=== PATIENT | male | born 1935 | race Caucasian/White ===

== ENCOUNTER 2018-11-28 19:37 | Inpatient (IN) ==
[2018-11-28] MEDS ORDERED: ASPIRIN PO ONE (20:04)
[2018-11-28] MEDS ORDERED: DUONEB (A & A) INH ONE (20:19)
[2018-11-28] MEDS ORDERED: SOLU-MEDROL IV ONE (20:19)
--- NOTE | 2018-11-28 20:26 | Diag Imaging Result Doc PS360 ---
EXAM: CHEST-PORTABLE 11/28/2018 HISTORY: SOB TECHNIQUE: AP portable upright at 2016 COMMENT: The inspiration is less optimal than on 09/12/2017. There is apparent COPD. The possibility of right lower lobe pneumonia cannot be excluded. IMPRESSION: Right lower lobe pneumonia. Electronically signed by Rakan Michel 11/28/2018 8:23 PM
--- NOTE | 2018-11-28 20:56 | EKG Report ---
Test Performed on : 11/28/2018 8:03:22 PM Test Reason : SOB Blood Pressure : / mmHG Vent. Rate : 092 BPM Atrial Rate : 092 BPM P-R Int : 160 ms QRS Dur : 110 ms QT Int : 380 ms P-R-T Axes : 070 057 077 degrees QTc Int : 469 ms Normal sinus rhythm. Incomplete left bundle branch block Nonspecific ST abnormality Abnormal ECG When compared with ECG of 25-MAR-2017 02:46, Incomplete left bundle branch block is now present Nonspecific T wave abnormality, improved in Inferior leads Unconfirmed Result
[2018-11-28 21:04] LABS: BASO# 0.06 X1000 (0.0-0.2); BASO% 0.5 % (0.0-0.8); EOS% 2.5 % (0.0-10.0); HEMOGLOBIN 12.2 g/dL (14.0-18.0); IMM GRAN# 0.04 X1000 (0.0-0.04); IMM GRAN% 0.3 % (0.0-0.5); LYMPH# 1.78 X1000 (1.2-3.4); LYMPH% 14.5 % (20.5-51.1); MCH 29.9 PG (27-31); MCV 90.7 FL (81-99); MONO# 1.11 X1000 (0.11-0.59); MONO% 9.1 % (1.7-9.3); MPV 10.3 FL (7.4-10.4); NEUT# 8.95 X1000 (1.4-6.5); NEUT% 73.1 % (42.2-75.2); PLT 228 X1000 (130-400); RBC 4.08 XMIL (4.7-6.1); RDW 13.8 % (11.5-14.5); WBC 12.24 X1000 (4.8-10.8)
[2018-11-28 21:10] LABS: INR 1.08; PROTIME 14.2 Seconds (11.0-16.0); PTT 31.8 Seconds (22.3-41.8)
[2018-11-28 21:22] LABS: ALB/GLOB RATIO 1.3; ALBUMIN 3.7 g/dL (3.5-5.0); CALCIUM 8.4 mg/dL (8.8-10.2); CREATININE 1.2 mg/dL (0.7-1.2); TOTAL BILIRUBIN 0.44 mg/dL (0.20-1.00); TOTAL PROTEIN 6.5 g/dL (6.3-8.3)
[2018-11-28 21:58] LABS: CK INDEX 1.5 (0.0-2.5); CK-MB 4.32 ng/mL (0.0-5.0)
[2018-11-28] MEDS ORDERED: ZITHROMAX 500 MG/NS 500 MG/250 ML IVPB IV ONE (22:22)
[2018-11-28] MEDS ORDERED: ROCEPHIN 1 GM in NS 50 ML IV ONE (22:22)
--- NOTE | 2018-11-28 22:25 | PROVIDER DOCUMENTATION ---
This chart was entered by Erik Carias Scribe, acting as scribe for Edward Mejia MD. HPI-Respiratory General - General Chief Complaint: Shortness of Breath Stated Complaint: SOB Time Seen by Provider: 11/28/18 20:05 Source: patient, EMS Allergies/Adverse Reactions: Patient Allergies Allergy/AdvReac Type Severity Reaction Status Date / Time No Known Allergies Allergy Verified 01/31/12 12:44 Home Medications: Home Medication List Medication Instructions Recorded Confirmed Last Taken Type Amlodipine Besylate/Benazepril 1 each PO QAM 02/01/12 11/28/18 03/24/17 09:00 History [Amlodipine-Benazepril 5-20 mg] Albuterol [Albuterol Neb] 1 each NEB Q4-6H PRN PRN 03/25/17 11/28/18 03/24/17 19:00 History Methylprednisolone [Medrol Dosepak] 4 mg PO DIRECTED #14 pkg 03/29/17 11/28/18 Unknown Rx Nicotine Patch [Nicoderm Patch] 14 mg TD Q24H PRN PRN #14 03/29/17 11/28/18 Unknown Rx patch.td24 - History of Present Illness-Resp Nature of Presenting Problem: Pt is a 83 yom who presents to the ED with a CC of shortness of breath. Pt reports a hx of COPD. Pt reports he has been short of breath for four days. Pt also complains of having a cough. Pt denies being on O2 at home. Pt reports he quit smoking four months ago. Quality of Pain: reports: dull Severity in ED: reports: mild Onset/Duration: reports: 4 days ago Timing: reports: still present Cough Quality/Degree: reports: mild Episode Frequency: occasional episodes Current Respiratory Medication Therapy: Initiated see nurses note Associated Symptoms: reports: cough, shortness of breath Similar Symptoms Previously?: Yes Recently seen or treated by another doctor?: No Review of Systems - Adult - REVIEW OF SYSTEMS - ADULT Constitutional: reports: see HPI Eyes: reports: no symptoms reported Ears, Nose, Mouth & Throat: reports: no symptoms reported Cardiovascular: reports: no symptoms reported Respiratory: reports: see HPI, cough, shortness of breath Gastrointestinal: reports: no symptoms reported Genitourinary: reports: no symptoms reported Musculoskeletal: reports: no symptoms reported Integumentary: reports: no symptoms reported Neurological: reports: no symptoms reported Psychiatric: reports: no symptoms reported Endocrine: reports: no symptoms reported Hematologic/Lymphatic: reports: no symptoms reported Allergic/Immunologic: reports: no symptoms reported All Other Systems: Reviewed and Negative Past History - Adult - PAST MEDICAL HISTORY-ADULT Review of Records: reports: Old Records Reviewed, Nursing Assessment Review, Medications Reviewed, Social history reviewed & non-contributory. Major Childhood Illnesses: reports: denies history Cardiovascular: reports: HTN Respiratory: reports: COPD Gastrointestinal: reports: denies history Obstetrical/Gynecological: reports: denies history Genitourinary: reports: denies history Musculoskeletal: reports: denies history Neurological: reports: denies history Endocrine/Immune: reports: denies history Other Conditions: reports: denies history - IMMUNIZATION STATUS Childhood Immunizations: See Nurse Assessment Flu Vaccine: See Nurse Assessment - FAMILY HISTORY Family History: reviewed, not pertinent - SOCIAL HISTORY Smoking: denies, quit less than 1 year, cigarettes Substance Use: none/never, denies Alcohol Use Frequency: never Physical Exam-General - PHYSICAL EXAM-ADULT Initial Vital Signs Reviewed: Yes - CONSTITUTIONAL General Appearance: alert, mild distress - EYES Eyes: PERRL/EOMI - HEAD, EARS, NOSE, MOUTH & THROAT HENMT: moist mucous membranes - NECK Neck: non-tender, full range of motion - RESPIRATORY Respiratory: chest non-tender, lungs clear, normal breath sounds, no pleuratic chest pain, no respiratory distress, no accessory muscle use - CARDIOVASCULAR Cardiovascular: normal peripheral pulses, regular rate, rhythm, no edema, no gallop, no JVD, no murmur - GASTROINTESTINAL (ABDOMEN) Abdominal Exam: non tender, soft - MUSCULOSKELETAL Extremity: normal range of motion, non-tender - SKIN Integumentary: normal color, warm/dry - NEUROLOGIC Neurologic: grossly normal, no motor/sensory deficits - PSYCHIATRIC Psych/Mental Status: normal mood/affect, normal thought content, normal thought process, oriented x 3 Progress - PLAN OF CARE/RESULTS Progress/Plan/Lab Results: Vital Signs - 8 hr 11/28/18 19:52 11/28/18 19:59 11/28/18 20:30 Temperature 98.1 F Pulse Rate 94 H 96 H 90 Respiratory Rate 28 H 28 H 33 H Blood Pressure 155/79 150/73 O2 Sat by Pulse Oximetry 98 95 96 Laboratory Results - last 24 hr 11/28/18 11/28/18 11/28/18 20:31 20:31 20:31 WBC 12.24 H RBC 4.08 L Hgb 12.2 L Hct 37.0 L MCV 90.7 MCH 29.9 MCHC 33.0 RDW Std Deviation 13.8 Plt Count 228 MPV 10.3 Immature Gran % (Auto) 0.3 Neut % (Auto) 73.1 Lymph % (Auto) 14.5 L [place] % (Auto) 9.1 Eos % (Auto) 2.5 Baso % (Auto) 0.5 Immature Gran # (Auto) 0.04 Neut # (Auto) 8.95 H Lymph # (Auto) 1.78 [place] # (Auto) 1.11 H Eos # (Auto) 0.30 Baso # (Auto) 0.06 PT INR PTT (Actin FS) Sodium 141 Potassium 4.0 Chloride 103 Carbon Dioxide 23 L Anion Gap 15 BUN 30 H Creatinine 1.2 Estimated GFR/1.73 m2 58 BUN/Creatinine Ratio 25 Glucose 147 H Calculated Osmolality 290 Calcium 8.4 L Total Bilirubin 0.44 AST 24 ALT 21 Alkaline Phosphatase 55 Creatine Kinase 290 H Creatine Kinase Index 1.5 CK-MB (CK-2) 4.32 Troponin T [id number]-Ssmdgjxonme Pept 4608 H Total Protein 6.5 Albumin 3.7 Globulin 2.8 Albumin/Globulin Ratio 1.3 11/28/18 11/28/18 20:31 20:31 WBC RBC Hgb Hct MCV MCH MCHC RDW Std Deviation Plt Count MPV Immature Gran % (Auto) Neut % (Auto) Lymph % (Auto) [place] % (Auto) Eos % (Auto) Baso % (Auto) Immature Gran # (Auto) Neut # (Auto) Lymph # (Auto) [place] # (Auto) Eos # (Auto) Baso # (Auto) PT 14.2 INR 1.08 PTT (Actin FS) 31.8 Sodium Potassium Chloride Carbon Dioxide Anion Gap BUN Creatinine Estimated GFR/1.73 m2 BUN/Creatinine Ratio Glucose Calculated Osmolality Calcium Total Bilirubin AST ALT Alkaline Phosphatase Creatine Kinase Creatine Kinase Index CK-MB (CK-2) Troponin T < 0.010 Lkf-R-Fruopexdmpo Pept Total Protein Albumin Globulin Albumin/Globulin Ratio Orders Category Date Time Status Cardiac Monitoring DIRECTED Care 11/28/18 20:04 Active Oxygen Therapy- ED Nursing DIRECTED Care 11/28/18 20:04 Active Saline Loc NOW Care 11/28/18 20:04 Active CHEST-PORTABLE [RAD] Stat Exams 11/28/18 20:08 Completed BLOOD CULTURE [BLDCUL] Stat Lab 11/28/18 20:31 Results CBC WITH ELECTRONIC DIFF [HEME] Stat Lab 11/28/18 20:31 Completed CK PROFILE [SP CHEM] Stat Lab 11/28/18 20:31 Completed COMPREHENSIVE METABOLIC PANEL [CHEM] Stat Lab 11/28/18 20:31 Completed PRO B-NATRIURETIC PEPTIDE Stat Lab 11/28/18 20:31 Completed PROTIME WITH INR [COAG] Stat Lab 11/28/18 20:31 Completed PTT [COAG] Stat Lab 11/28/18 20:31 Completed TROPONIN T Stat Lab 11/28/18 20:31 Completed Albuterol 2.5MG/Ipratrop 0.5MG [Duoneb (A & A)] Med 11/28/18 20:19 Discontinued 3 ml INH NOW ONE Aspirin Med 11/28/18 20:04 Discontinued 325 mg PO NOW ONE Azithromycin 500 mg/Ns [Zithromax 500 mg/Ns] Med 11/28/18 22:22 Ordered 500 mg in 250 ml IV NOW Methylprednisolone Sod Succ [Solu-Medrol] Med 11/28/18 20:19 Discontinued 125 mg IV NOW ONE Rocephin 1 gm/Ns IV Now Med 11/28/18 22:22 Ordered CefTRIAXONE [Rocephin] 1 gm 0.9% Sodium Chloride Inj [Ns] 50 ml IV NOW Aerosol Treatments Routine Oth 11/28/18 20:19 Completed Aerosol Treatments Stat Oth 11/28/18 20:19 Completed CP/SOB/Palp >45 yrs of Age Stat Oth 11/28/18 20:04 Ordered EKG [EKG] Stat Ther 11/28/18 20:04 Draft Result Diagrams: 11/28/18 20:31 11/28/18 20:31 - EKG 1 Time of EKG reading by physician:: 20:04 EKG Read and Signed by:: Edward Mejia EKG Interpretation (*Must complete 3 of following elements*): Abnormal (Incomplete left bundle branch block; Nonspecific ST abnormality) Rate: 92 Rhythm: NSR [place]: normal QRS: normal MD Interval: normal ST Wave: non-specific ST changes Departure - Departure Date of Disposition Decision: 11/28/18 Time of Disposition Decision: 22:24 DIAGNOSIS: COPD exacerbation Pneumonia Qualifiers: Pneumonia type: due to unspecified organism Laterality: right Lung location: upper lobe of lung Qualified Code(s): J18.1 - Lobar pneumonia, unspecified organism Disposition: ADMITTED INPATIENT 09 Certified Medical Emergency: Emergent Condition: Stable Additional Freetext Instructions: ED Follow Up Instructions: You have been treated by a care provider in the Emergency Department. These instructions are being provided to you so you can have an understanding of how to care for yourself upon discharge. Upon discharge from the Emergency Department, you are responsible for making arrangements for follow-up care by a physician of your choice. Take all prescribed medications as directed. Return to the Emergency Department immediately for any new or worsening symptoms. You may call the Physician Referral phone number at [phone] to obtain a list of Physicians who are taking new patients. Referrals and Follow-Ups: Yudelka Cordova MD [Primary Care Provider] - - Critical Care Note This patient required my direct & personal management of CC.: No Attestation - Physician/ KRISTI Attestation Patient care was provided by Advanced Practice Provider:: No The physician spent face to face time with patient:: Yes Advanced Practice Provider documentation review:: Supervising physician onsite and consulted in the evaluation and care of this patient. The physician did have a face to face encounter with the patient. This chart was documented by the indicated scribe, (Erik Carias, Miguelitoibandrea) and accurately reflects the services I performed and decisions made by me, Edward Mejia MD, as attested by the provider's signature.
--- NOTE | 2018-11-28 23:55 | HISTORY AND PHYSICAL ---
PRIMARY CARE PHYSICIAN: Dr. Cordova. REASON FOR ADMISSION: Four-day history of shortness of breath. HISTORY OF PRESENT ILLNESS: Mr. Ewing is an 89-year-old male with past medical history of COPD, stopped smoking 4 months ago, and has a history of hypertension. The patient comes in today complaining of a 4-day history of worsening shortness of breath and frequent use of nebulizer treatment. He also reports a cough for the same duration, but no fever or chills. No leg swelling, PND, orthopnea, chest pain or any anginal equivalent. He denies any GI or complaints, although he said a few days ago he did have some loose, nonbloody stools, but that resolved spontaneously. His cough he reports is productive but difficult to expectorate. REVIEW OF SYSTEMS: Negative for any genitourinary, neurological complaints. No polyuria or polydipsia. Twelve system review was done, positive findings per HPI. ALLERGIES: None. MEDICATIONS: He is on Lotrel, dose unknown, albuterol nebulizer treatments p.r.n. PAST SURGICAL HISTORY: He has had a bilateral hydrocelectomy. SOCIAL HISTORY: Lives alone. Does not smoke anymore. No alcohol or illicit drug use. FAMILY HISTORY: Negative for heart disease and diabetes. The patient denies any close contacts with anybody. LABORATORY WORK: White count 12,000, hemoglobin and hematocrit 12 and 37, platelets 228,000, with normal differential. BUN is 30, creatinine 1.2. Glucose 147. Troponin is negative. ProBNP 4500. PT and PTT are normal. Chest x-ray shows right lower lobe pneumonia. PHYSICAL EXAMINATION: VITAL SIGNS: Blood pressure is 150/70, heart rate is 96, respiratory rate is 28, temperature is 98.1. He is 95% on 4 L nasal cannula. GENERAL: He is a thin, elderly man who is in moderate respiratory distress with mild use of accessory muscles. He is alert and oriented to person and time with normal mood and affect. HEENT: Head is normocephalic, atraumatic. Eyes, PERRLA, EOMI. He is anicteric. Not pale. ENT exam is grossly normal. NECK: Supple. No JVD or carotid bruit. No thyromegaly. CHEST: The patient has decreased entry in both lung devine with scattered wheezes and bilateral crepitations, right greater than left. ABDOMEN: Slightly distended, soft but not tender. No bowel sounds are hypoactive. Rectal exam deferred at this time. No mass or organomegaly appreciated. EXTREMITIES: Patient has good distal pulse volume, symmetrical, regular. No edema, clubbing, or peripheral cyanosis. NEURO: No gross focal deficits. SKIN: Intact. No breakdown, lesions, erythema. MUSCULOSKELETAL: Grossly normal. ASSESSMENT: 1. Right lower lobe pneumonia. 2. Chronic obstructive pulmonary disease exacerbation. 3. Hypertension. PLAN: The patient will be started on community-acquired pneumonia antibiotics, Zithromax and Rocephin. Start patient on short and long-acting bronchodilators. We will also treat patient with a short course of moderate doses of steroids. Blood sugar will be monitored and decision to start insulin will be left to the day team, depending on patient's blood sugars. 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 cc: MD Yudelka Delvalle MD
[2018-11-29] MEDS: ROCEPHIN 1 GM in NS 50 ML IV SCH (02:02)
[2018-11-29] MEDS: LOVENOX SUBQ SCH (02:03)
[2018-11-29] MEDS: MUCINEX PO SCH ×3 (02:03→21:11)
[2018-11-29] MEDS: DUONEB (A & A) INH SCH ×4 (03:45→22:34)
[2018-11-29 08:39] LABS: AGAP 18; BUN 27 mg/dL (8-22); CALCIUM 8.4 mg/dL (8.8-10.2); CHLORIDE 100 mmol/L (98-107); COSMO 285; ESTIMATED GFR > 60; GLUCOSE 216 mg/dL (70-104); POTASSIUM 4.3 mmol/L (3.5-5.1); SODIUM 137 mmol/L (136-145); TCO2 19 mmol/L (25-35)
[2018-11-29 08:41] LABS: HEMOGLOBIN A1C 5.8 % (4.8-6.0)
[2018-11-29 08:47] LABS: BASO# 0.02 X1000 (0.0-0.2); BASO% 0.2 % (0.0-0.8); HEMATOCRIT 35.5 % (42.0-52.0); HEMOGLOBIN 11.9 g/dL (14.0-18.0); IMM GRAN# 0.06 X1000 (0.0-0.04); IMM GRAN% 0.5 % (0.0-0.5); LYMPH# 0.65 X1000 (1.2-3.4); LYMPH% 5.7 % (20.5-51.1); MCH 30.2 PG (27-31); MCHC 33.5 g/dL (33-37); MCV 90.1 FL (81-99); MONO# 0.12 X1000 (0.11-0.59); MONO% 1.1 % (1.7-9.3); MPV 10.8 FL (7.4-10.4); NEUT# 10.57 X1000 (1.4-6.5); NEUT% 92.5 % (42.2-75.2); PLT 227 X1000 (130-400); RBC 3.94 XMIL (4.7-6.1); RDW 13.7 % (11.5-14.5); WBC 11.42 X1000 (4.8-10.8)
[2018-11-29] MEDS: BROVANA NEB INH SCH ×2 (09:11→22:33)
[2018-11-29 09:20] LABS: LYMPHS 5 % (21-51); MONO 1 % (1-9); SEGS 94 % (42-75)
[2018-11-29] MEDS ORDERED: BROVANA NEB ONE (09:21)
[2018-11-29 09:22] LABS: ANISOCYTOSIS 1+; POIKILOCYTOSIS 1+; TARGET CELLS 1+
[2018-11-29] MEDS: LOTREL 5/20 MG PO SCH (10:20)
[2018-11-29] MEDS: PREDNISONE PO SCH (10:20)
--- NOTE | 2018-11-29 15:09 | PROGRESS NOTE ---
DATE: 11/29/2018 SUBJECTIVE: This morning Mr. Ewing refers to be having some shortness of breath. He is still coughing and wheezing. OBJECTIVELY: Vitals: Blood pressure is 157/73, pulse of 83, respirations 19, temperature 97.4 degrees. General: Mr. Ewing is an 83-year-old gentleman. He was in bed, was in mild respiratory distress. Mucosa is pink and moist. Anicteric. Acyanotic. Neck: Supple. Chest: Air entry was bilaterally reduced. There is a prolonged expiratory phase of respiration. There is diffuse, both inspiration and expiratory wheezing. Cardiovascular: Regular rate and rhythm. Abdomen: Soft. Extremities: No pedal edema. 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 LABORATORY DATA: WBC is 11.45, hemoglobin 11.9, platelet count 227,000. Chemistry is also reviewed. MEDICATIONS: Have all been reviewed. A chest x-ray on presentation did suggest right lower lobe pneumonia. ASSESSMENT: 1. Acute hypoxemic respiratory failure. 2. COPD exacerbation. 3. Suspected right lower lobe pneumonia. 4. Hypertension. For now are going to continue with antibiotics, steroids, and bronchodilation therapy. Respiratory therapy is on board and will re-evaluate Mr. Ewing tomorrow. We will also do an ABG in the morning. cc: Jamel Johnson MD MTDJose
[2018-11-29] MEDS ORDERED: PRILOSEC PO ONE (17:31)
[2018-11-29] MEDS: PRILOSEC PO SCH (21:13)
[2018-11-29] MEDS: ZITHROMAX 500 MG/NS 500 MG/250 ML IVPB IV SCH (22:24)
[2018-11-30] MEDS: ROCEPHIN 1 GM in NS 50 ML IV SCH (01:33)
[2018-11-30] MEDS: LOVENOX SUBQ SCH (01:34)
[2018-11-30] MEDS: DUONEB (A & A) INH SCH ×4 (03:21→23:00)
[2018-11-30 03:48] LABS: ALLEN TEST YES; BE -2.6 mmoll (-3.0-3.0); BLOOD TYPE ARTERIAL; HCO3-(ACT) 22.9 mmoll (20.0-26.0); METHB 1.2 % (0.0-1.5); O2(CT) 15.7 mL/dL (15.0-23.0); O2HB 96.9 % (95.0-99.0); PCO2(98.6) 35 mmHg (35-45); PO2(98.6) 114 mmHg (60-100); SAMPLE BLOOD; SAO2 99.3 % (95.0-100.0); THB 11.4 g/dL (11.5-17.4)
[2018-11-30 03:49] LABS: MODALITY CANNULA
[2018-11-30] MEDS: PRILOSEC PO SCH ×2 (06:14→22:12)
[2018-11-30] MEDS: BROVANA NEB INH SCH ×2 (08:30→20:02)
[2018-11-30] MEDS: PREDNISONE PO SCH (09:01)
[2018-11-30] MEDS: LOTREL 5/20 MG PO SCH (09:01)
[2018-11-30] MEDS: MUCINEX PO SCH ×2 (09:01→22:12)
[2018-11-30] MEDS: HYGROTON PO SCH (11:13)
--- NOTE | 2018-11-30 12:44 | PROGRESS NOTE ---
DATE: 11/30/2018 SUBJECTIVE: This morning Mr. Ewing refers to be doing a little better but he still has remarkable wheezing. OBJECTIVE: Vital Signs: Blood pressure is 146/52, pulse of 74, respirations 22, temperature is 98.0 degrees, the patient is saturating 98% on 2 L. General: Mr. Ewing is an 83-year-old elderly male, he was in bed, he seems to be in mild respiratory distress. HEENT: Mucosa is pink and moist. Anicteric. Acyanotic. Neck: Supple. Chest: Chest is barrel shape. Air entry was bilaterally reduced. There is obviously a more prolonged expiratory phase of respiration. There is wheezing in both lung devine. Cardiovascular: Regular rate and rhythm. No murmurs. Abdomen: Soft, nontender. Extremities: No pedal edema. 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 Psychiatric: The patient has good congruent mood and affect. LABORATORY DATA: None for today. Glucose is 137. IMAGING STUDIES: From 3 days ago did show a right lower lobe pneumonia, we are going to repeat this tomorrow. CURRENT MEDICATIONS: Have all been reviewed. 1. He is on nebulizations with albuterol and ipratropium. 2. Aztreonam 500 every day. 3. Ceftriaxone 1 g every day. 4. Lovenox 40 mg subcutaneously daily. 5. Omeprazole 20 mg b.i.d. 6. Prednisone 40 mg p.o. daily. ASSESSMENT: 1. Acute hypoxemic respiratory failure. The patient continues to be on mild oxygen on nasal cannula and seems to be saturating well. 2. Severe COPD exacerbation. We will continue with the standard of care. 3. Right lower lobe pneumonia. The patient is on antimicrobials. So far the blood cultures have all been unremarkable and the patient has not been able to do any sputum yet. 4. Hypertension, controlled. PLAN: So in general Mr. Ewing seems to be doing a little bit better, but remains remarkably bronchospastic, so we are going to continue with standard of care and reevaluate him in the morning. cc: Jamel Johnson MD
[2018-11-30] MEDS ORDERED: BROVANA NEB ONE (19:20)
[2018-11-30] MEDS: ZITHROMAX 500 MG/NS 500 MG/250 ML IVPB IV SCH (22:12)
[2018-12-01] MEDS: LOVENOX SUBQ SCH (00:36)
[2018-12-01] MEDS: ROCEPHIN 1 GM in NS 50 ML IV SCH (00:36)
[2018-12-01] MEDS: DUONEB (A & A) INH SCH ×5 (03:29→21:40)
[2018-12-01] MEDS: PRILOSEC PO SCH ×2 (06:37→21:27)
[2018-12-01] MEDS ORDERED: BROVANA NEB ONE (07:34)
--- NOTE | 2018-12-01 08:16 | Diag Imaging Result Doc PS360 ---
CHEST-2 VIEWS - 12/01/2018 INDICATION: hypoxia COMPARISON: 11/28/2018 FINDINGS: Stable severe COPD. There is a small patchy infiltrate or atelectasis in the right lung base. No pneumothorax or pleural effusion. Heart size is top normal. IMPRESSION: Faint infiltrate or area of atelectasis in the right lung base. Severe COPD. Electronically signed by Mikal Canseco 12/01/2018 8:14 AM
[2018-12-01] MEDS: MUCINEX PO SCH ×2 (10:02→21:27)
[2018-12-01] MEDS: PREDNISONE PO SCH (10:02)
[2018-12-01] MEDS: NORVASC PO SCH (10:02)
[2018-12-01] MEDS: HYGROTON PO SCH (10:18)
[2018-12-01] MEDS: BROVANA NEB INH SCH ×2 (10:37→19:37)
--- NOTE | 2018-12-01 15:59 | PROGRESS NOTE ---
DATE: 12/01/2018 SUBJECTIVE: This morning, Mr. Ewing refers to be doing remarkably well. He said he is now coughing up a little bit more, and he is less wheezing. OBJECTIVE: Vital signs: Blood pressure is 142/59, pulse of 82, respirations 18, temperature 97.8 degrees. General: Mr. Ewing is an 83-year-old gentleman. He was in bed, no distress. HEENT: Mucosa is pink and moist. Anicteric. Acyanotic. Neck: Supple. Chest: Air entry is bilaterally reduced. There is mild wheezing in both lung devine. There is prolonged expiratory phase of respiration. Cardiovascular: Regular rate and rhythm. GI: Abdomen was soft, nontender. Extremities: No pedal edema. There is positive clubbing. 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 LABORATORY DATA: Glucose was 123. IMAGING STUDIES: Imaging studies today did show a faint infiltrate or area of atelectasis in the right lung. Severe COPD. ASSESSMENT: 1. Acute hypoxemic respiratory failure. Patient continues to be on nasal cannula. 2. Severe chronic obstructive pulmonary disease in exacerbation. 3. Right lower lobe pneumonia. Patient is on antimicrobial. 4. Hypertension, controlled. PLAN: In general, I think Mr. Ewing seems to be progressively getting better. He is currently on nasal cannula just 2, and he is saturating 98%. I think we probably might be able to discontinue the oxygen therapy. We are going to continue with the nebulization, antibiotics, steroids and re-evaluate him in the morning and then go from there. cc: Jamel Johnson MD
[2018-12-01] MEDS: ZITHROMAX 500 MG/NS 500 MG/250 ML IVPB IV SCH (21:27)
[2018-12-02] MEDS: ROCEPHIN 1 GM in NS 50 ML IV SCH (00:11)
[2018-12-02] MEDS: LOVENOX SUBQ SCH (00:12)
[2018-12-02] MEDS: DUONEB (A & A) INH SCH ×2 (03:12→10:55)
[2018-12-02] MEDS: PRILOSEC PO SCH (06:43)
[2018-12-02] MEDS ORDERED: BROVANA NEB ONE (07:33)
[2018-12-02] MEDS: BROVANA NEB INH SCH (08:01)
[2018-12-02] MEDS: NORVASC PO SCH (09:04)
[2018-12-02] MEDS: PREDNISONE PO SCH (09:05)
[2018-12-02] MEDS: HYGROTON PO SCH (09:06)
[2018-12-02] MEDS: MUCINEX PO SCH (09:07)
[2018-12-02 11:40] VITALS: BP 143/67
--- NOTE | 2018-12-02 16:54 | DISCHARGE SUMMARY ---
ADMISSION DATE: 11/28/2018 DISCHARGE DATE: 12/02/2018 LENGTH OF STAY: 4 days. DISPOSITION: Home. FOLLOW-UP: 1. Dr. Cordova. 2. Dr. Adrian. CONSULTATION DURING THIS ADMISSION: None. IMAGING STUDIES OF SIGNIFICANCE: 1. Chest x-ray on admission showed right lower lobe pneumonia is subsequent x- ray did show faint infiltrate or area of atelectasis in the right lung base. Severe COPD. ADMISSION DIAGNOSES: 1. Right lower lobe pneumonia. 2. Chronic obstructive pulmonary disease exacerbation. 3. Hypertension. DISCHARGE DIAGNOSES: 1. Acute hypoxemic respiratory failure. 2. Severe chronic obstructive pulmonary disease, in exacerbation. 3. Right lower lobe pneumonia. 4. Hypertension. DISCHARGE MEDICATIONS: 1. Amlodipine/benazepril. 2. Omeprazole 20 mg b.i.d. 3. Augmentin 875 b.i.d. 4. Prednisone 20 mg p.o. daily. 5. Spiriva inhaler. 6. Chlorthalidone 12.5 p.o. daily. 7. Doxycycline 100 mg b.i.d. PRESENTING COMPLAINT: 4-day history of shortness of breath. HISTORY OF PRESENT COMPLAINT: Mr. Ewing is an 83-year-old gentleman, who presented to the emergency department because of shortness of breath. He was found to be in COPD exacerbation with a chest x-ray which revealed a right lower lobe pneumonia. Mr. Ewing was admitted to the medical floor for further management. HOSPITAL COURSE: Mr. Ewing was admitted to the medical floor was treated in the regular fashion, started on IV antibiotics, steroids, and bronchodilation therapy and Respiratory Therapy was consulted. During the hospital course, Mr. Ewing continues to progressively feel better. Today he refers the shortness of breath is completely resolved. He has been checked for home oxygen. He does not qualify at this point. We think he is, however, stable for discharge. CURRENT VITALS: Blood pressure is 143/67, pulse of 79, respirations 20, temperature 98.9 degrees, patient is saturating 94% on room air. He is in stable condition for discharge. All the discharge instructions have been discussed with him. He has also been advised to follow up with Pulmonary Medicine (Dr. Adrian) for further outpatient COPD management. All the discharge instructions discussed. He voiced understanding. COORDINATION TIME: Time spent for discharge is 35 minutes. cc: MD Yudelka Feliz MD James E. Boyle, MD MTDD
== END 2018-12-02 15:40 | disposition home or self-care (01) | DRG 190 ==
LOC: SUPCPDRO → ED 19:37 → SUATTDRO 19:38 → 3N 19:38
PROVIDERS: ATTEND Internal Medicine

== ENCOUNTER 2019-04-19 20:09 | Inpatient (IN) ==
[2019-04-19] MEDS ORDERED: DUONEB (A & A) INH ONE (20:45)
--- NOTE | 2019-04-19 20:46 | PROVIDER DOCUMENTATION ---
HPI-Respiratory General - General Chief Complaint: Shortness of Breath Stated Complaint: sob Time Seen by Provider: 04/19/19 20:24 Source: patient Allergies/Adverse Reactions: Patient Allergies Allergy/AdvReac Type Severity Reaction Status Date / Time No Known Allergies Allergy Verified 01/31/12 12:44 Home Medications: Home Medication List Medication Instructions Recorded Confirmed Last Taken Type Amlodipine Besylate/Benazepril 1 each PO QAM 02/01/12 11/28/18 03/24/17 09:00 History [Amlodipine-Benazepril 5-20 mg] Albuterol [Albuterol Neb] 1 each NEB Q4-6H PRN PRN 03/25/17 11/28/18 03/24/17 19:00 History Nicotine Patch [Nicoderm Patch] 14 mg TD Q24H PRN PRN #14 03/29/17 11/28/18 Unknown Rx patch.[id number] Amoxicillin/Potassium Clav 1 ea PO BID #10 tab 12/02/18 Unknown Rx [Augmentin 875-125 Tablet] Chlorthalidone [Hygroton] 12.5 mg PO DAILY #60 tab 12/02/18 Unknown Rx Doxycycline 100 mg PO BID #10 tab 12/02/18 Unknown Rx Omeprazole [Prilosec] 20 mg PO BID@0700,2100 cap 12/02/18 Unknown Rx Prednisone 20 mg PO DAILY #5 tab 12/02/18 Unknown Rx Tiotropium [place] Inhaler 1 puff INH RTDAILY #1 inhaler 12/02/18 Unknown Rx [Spiriva] - History of Present Illness-Resp Nature of Presenting Problem: 83 yr old M, with hx of COPD and HTN, presenting tonight with worsening SOB since 1pm this afternoon. The pt states that he started to become short of breath at about 1pm this afternoon, and it progressed, was accompanied by white sputum production; the pt denies recent illness; recent travel; he denies any chest discomfort. Quality of Pain: reports: none Onset/Duration: reports: 4-6 hours ago Timing: reports: still present Context: denies: recent foreign travel, recent URI, out of meds Exposure: reports: unknown cause Cough Quality/Degree: reports: mild, productive cough, sputum Current Respiratory Medication Therapy: Initiated A/A nebulizer Associated Symptoms: reports: cough, shortness of breath. denies: chest pain/soreness, fever/chills Similar Symptoms Previously?: Yes Review of Systems - Adult - REVIEW OF SYSTEMS - ADULT Constitutional: reports: no symptoms reported Eyes: reports: no symptoms reported Ears, Nose, Mouth & Throat: reports: no symptoms reported Cardiovascular: reports: no symptoms reported Respiratory: reports: see HPI Gastrointestinal: reports: no symptoms reported Genitourinary: reports: no symptoms reported Musculoskeletal: reports: no symptoms reported Integumentary: reports: no symptoms reported Neurological: reports: no symptoms reported Psychiatric: reports: no symptoms reported Endocrine: reports: no symptoms reported Past History - Adult - PAST MEDICAL HISTORY-ADULT Review of Records: reports: Old Records Reviewed Major Childhood Illnesses: reports: denies history Cardiovascular: reports: denies history Respiratory: reports: denies history Gastrointestinal: reports: denies history Obstetrical/Gynecological: reports: denies history Genitourinary: reports: denies history Musculoskeletal: reports: denies history Neurological: reports: denies history Endocrine/Immune: reports: denies history Other Conditions: reports: denies history - IMMUNIZATION STATUS Childhood Immunizations: See Nurse Assessment Flu Vaccine: See Nurse Assessment - FAMILY HISTORY Family History: reviewed, not pertinent - SOCIAL HISTORY Living Situation: alone Physical Exam-General - PHYSICAL EXAM-ADULT Initial Vital Signs Reviewed: Yes - CONSTITUTIONAL General Appearance: alert, mild distress - EYES Eyes: PERRL/EOMI - HEAD, EARS, NOSE, MOUTH & THROAT HENMT: normocephalic/atraumatic, moist mucous membranes - RESPIRATORY Respiratory: chest non-tender, no pleuratic chest pain, no accessory muscle use, wheezing (in all lung devine, audible) - CARDIOVASCULAR Cardiovascular: regular rate, rhythm - GASTROINTESTINAL (ABDOMEN) Abdominal Exam: normal bowel sounds, non tender, soft - MUSCULOSKELETAL Extremity: no pedal edema, no calf tenderness - SKIN Integumentary: warm/dry - PSYCHIATRIC Psych/Mental Status: normal mood/affect, oriented x 3 - HEART Score HEART Score: History: Slightly Suspicious HEART Score: ECG: Normal HEART Score: Age: > or = 65 Years HEART Score: Risk Factors for Atherosclerotic Disease: 1 or 2 Risk Factors HEART Score: Troponin: 1-3x Normal Limit Total HEART Score:: 4 Progress - PLAN OF CARE/RESULTS Progress/Plan/Lab Results: Vital Signs - 8 hr 04/19/19 20:21 04/19/19 21:03 Temperature 97.9 F Pulse Rate 84 79 Respiratory Rate 21 16 Blood Pressure 159/95 O2 Sat by Pulse Oximetry 99 97 Laboratory Results - last 24 hr 04/19/19 04/19/19 04/19/19 20:43 20:43 20:43 WBC 12.54 H RBC 4.36 L Hgb 12.9 L Hct 40.0 L MCV 91.7 MCH 29.6 MCHC 32.3 L RDW Std Deviation 14.0 Plt Count 245 MPV 9.7 Immature Gran % (Auto) 0.2 Neut % (Auto) 53.2 Lymph % (Auto) 19.5 L Kaufman % (Auto) 7.2 Eos % (Auto) 19.2 H Baso % (Auto) 0.7 Immature Gran # (Auto) 0.03 Neut # (Auto) 6.67 H Lymph # (Auto) 2.44 Kaufman # (Auto) 0.90 H Eos # (Auto) 2.41 H Baso # (Auto) 0.09 Specimen Type Sample Site pH pCO2 pO2 HCO3 Base Excess Oxyhemoglobin ABG O2 Sat (Calculated) ABG O2 Saturation ABG Carboxyhemoglobin ABG Methemoglobin Tian Test A-a O2 Difference Total Hemoglobin Lactate Liter Flow Blood Gas Modality FiO2 % Sodium 146 H Potassium 5.6 H Chloride 107 Carbon Dioxide 24 L Anion Gap 15 BUN 25 H Creatinine 1.3 H Estimated GFR/1.73 m2 53 BUN/Creatinine Ratio 19 Glucose 107 H Calculated Osmolality 296 Calcium 9.3 Total Bilirubin 0.18 L AST 20 ALT 16 Alkaline Phosphatase 67 Creatine Kinase 152 Troponin T High Sens 25 H Fwz-U-Ozzrqpogvpa Pept Total Protein 6.9 Albumin 4.7 Globulin 2.2 Albumin/Globulin Ratio 2.1 04/19/19 04/19/19 20:45 20:47 WBC RBC Hgb Hct MCV MCH MCHC RDW Std Deviation Plt Count MPV Immature Gran % (Auto) Neut % (Auto) Lymph % (Auto) Kaufman % (Auto) Eos % (Auto) Baso % (Auto) Immature Gran # (Auto) Neut # (Auto) Lymph # (Auto) Kaufman # (Auto) Eos # (Auto) Baso # (Auto) Specimen Type ARTERIAL Sample Site R RADIAL pH 7.40 pCO2 39 pO2 80 HCO3 24.5 Base Excess -0.5 Oxyhemoglobin 94.8 L ABG O2 Sat (Calculated) 17.2 ABG O2 Saturation 99.0 ABG Carboxyhemoglobin 2.90 H ABG Methemoglobin 1.3 Tian Test YES A-a O2 Difference 185.0 Total Hemoglobin 12.9 Lactate 0.50 Liter Flow 6.0 Blood Gas Modality CANNULA FiO2 % 44.0 Sodium Potassium Chloride Carbon Dioxide Anion Gap BUN Creatinine Estimated GFR/1.73 m2 BUN/Creatinine Ratio Glucose Calculated Osmolality Calcium Total Bilirubin AST ALT Alkaline Phosphatase Creatine Kinase Troponin T High Sens Qby-U-Zeuclgghawx Pept 1438 H Total Protein Albumin Globulin Albumin/Globulin Ratio Orders Category Date Time Status CHEST-PORTABLE [RAD] Stat Exams 04/19/19 20:30 Completed ABG [RESP] Routine Lab 04/19/19 20:45 Completed CBC WITH ELECTRONIC DIFF [HEME] Stat Lab 04/19/19 20:43 Completed CK PROFILE [SP CHEM] Stat Lab 04/19/19 20:43 Completed COMPREHENSIVE METABOLIC PANEL [CHEM] Stat Lab 04/19/19 20:43 Completed PRO B-NATRIURETIC PEPTIDE Stat Lab 04/19/19 20:47 Completed TROPONIN T HIGH SENSITIVITY Stat Lab 04/19/19 20:43 Completed Albuterol 2.5MG/Ipratrop 0.5MG [Duoneb (A & A)] Med 04/19/19 20:45 Discontinued 3 ml INH NOW ONE Azithromycin 500 mg/Ns [Zithromax 500 mg/Ns] Med 04/19/19 22:23 Active 500 mg in 250 ml IV NOW Furosemide [Lasix] Med 04/19/19 22:21 Discontinued 20 mg IV NOW ONE Methylprednisolone Sod Succ [Solu-Medrol] Med 04/19/19 22:22 Discontinued 40 mg IV NOW ONE Aerosol Treatments Routine Oth 04/19/19 20:45 Active Aerosol Treatments Stat Oth 04/19/19 20:45 Active EKG [EKG] Stat Ther 04/19/19 20:11 Draft Transfer/Admit Order [TRANSFER] Routine Transfer 04/19/19 22:46 Ordered Will plan to admit pt for COPD exacerbation. He also has hyperkalemia. Result Diagrams: 04/19/19 20:43 04/19/19 20:43 - CONSULTS/PCP/HOSPITALIST Notification #1 *Consult/PCP/Hospitalist*: Dr. Golden Time Discussed: 21:50 Consult Disposition: Admit Departure - Departure Date of Disposition Decision: 04/19/19 Time of Disposition Decision: 22:06 DIAGNOSIS: COPD exacerbation, Hyperkalemia Disposition: ADMITTED INPATIENT 09 Certified Medical Emergency: Emergent Condition: Stable - Critical Care Note This patient required my direct & personal management of CC.: No Attestation - Physician/ KRISTI Attestation Patient care was provided by Advanced Practice Provider:: No The physician spent face to face time with patient:: Yes Advanced Practice Provider documentation review:: Supervising physician onsite and consulted in the evaluation and care of this patient. The physician did have a face to face encounter with the patient.
[2019-04-19 20:56] LABS: ALLEN TEST YES; BE -0.5 mmoll (-3.0-3.0); BLOOD TYPE ARTERIAL; HCO3-(ACT) 24.5 mmoll (20.0-26.0); METHB 1.3 % (0.0-1.5); O2(CT) 17.2 mL/dL (15.0-23.0); O2HB 94.8 % (95.0-99.0); PCO2(98.6) 39 mmHg (35-45); PO2(98.6) 80 mmHg (60-100); SAMPLE BLOOD; THB 12.9 g/dL (11.5-17.4)
[2019-04-19 20:57] LABS: MODALITY CANNULA
[2019-04-19 20:57] LABS: BASO# 0.09 X1000 (0.0-0.2); BASO% 0.7 % (0.0-0.8); EOS# 2.41 X1000 (0.0-0.7); EOS% 19.2 % (0.0-10.0); HEMOGLOBIN 12.9 g/dL (14.0-18.0); IMM GRAN# 0.03 X1000 (0.0-0.04); IMM GRAN% 0.2 % (0.0-0.5); LYMPH# 2.44 X1000 (1.2-3.4); LYMPH% 19.5 % (20.5-51.1); MCH 29.6 PG (27-31); MCHC 32.3 g/dL (33-37); MCV 91.7 FL (81-99); MONO% 7.2 % (1.7-9.3); MPV 9.7 FL (7.4-10.4); NEUT# 6.67 X1000 (1.4-6.5); NEUT% 53.2 % (42.2-75.2); PLT 245 X1000 (130-400); RBC 4.36 XMIL (4.7-6.1); WBC 12.54 X1000 (4.8-10.8)
--- NOTE | 2019-04-19 21:00 | Diag Imaging Result Doc PS360 ---
EXAM: CHEST-PORTABLE - 04/19/2019 HISTORY: SOB TECHNIQUE: Portable chest COMPARISON: 12/01/2018 FINDINGS: Heart size is normal. There are COPD changes. There is infrahilar marking prominence on the right which appears to be chronic. There is no discrete acute consolidation, pleural effusion, or pneumothorax identified. IMPRESSION: COPD. No discrete pneumonia. No pneumothorax. Electronically signed by Gael Kendrick 04/19/2019 8:58 PM
--- NOTE | 2019-04-19 21:14 | EKG Report ---
Test Performed on : 04/19/2019 8:21:21 PM Test Reason : sob Blood Pressure : / mmHG Vent. Rate : 088 BPM Atrial Rate : 088 BPM P-R Int : 156 ms QRS Dur : 110 ms QT Int : 390 ms P-R-T Axes : 049 045 081 degrees QTc Int : 471 ms Normal sinus rhythm. Nonspecific ST and T wave abnormality Abnormal ECG When compared with ECG of 28-NOV-2018 20:03, Incomplete left bundle branch block is no longer present Unconfirmed Result
[2019-04-19 21:24] LABS: ALBUMIN 4.7 g/dL (3.5-5.0); POTASSIUM 5.6 mmol/L (3.5-5.1)
[2019-04-19 21:50] LABS: CALCIUM 9.3 mg/dL (8.8-10.2); CREATININE 1.3 mg/dL (0.7-1.2); TOTAL BILIRUBIN 0.18 mg/dL (0.20-1.00); TOTAL PROTEIN 6.9 g/dL (6.3-8.3)
[2019-04-19 22:00] LABS: ALB/GLOB RATIO 2.1
[2019-04-19] MEDS ORDERED: LASIX IV ONE (22:21)
[2019-04-19] MEDS ORDERED: ZITHROMAX 500 MG/NS 500 MG/250 ML IVPB IV ONE (22:23)
--- NOTE | 2019-04-19 22:54 | HISTORY AND PHYSICAL ---
ADDENDUM: The patient says that he developed sudden shortness of breath about 10 hours ago, i.e. noon time and says his breathing has gotten progressively worse. Initially, he was experiencing dyspnea with mild exertion, and as the day wore on, it became at rest. He admits to having a cough, but it is predominantly dry. No fever or chills. No contact with any respiratory illness. No chest pain, palpitations or anginal type equivalents. No leg swelling, PND, or extremity redness. White count is 12,000, hemoglobin and hematocrit 12 and 40, platelets 245,000. His potassium is 5.6 and sodium is 146, has a BUN of 25 and a creatinine of 1.3, which is pretty much somewhat his baseline the latter. I reviewed his x-rays. He has very slight increased vascular markings. There were slightly hyperinflated lungs. PHYSICAL EXAMINATION: GENERAL: Thin, elderly white male who is in mild respiratory distress using accessory muscles. LUNGS: He is noted to have decreased air entry in both lung devine with scattered wheezes and a few coarse crepitations in the bases. CARDIOVASCULAR: First and second heart sounds heard. No gallops, murmurs or rubs. Rhythm is regular. EXTREMITIES: No edema and good distal pulse volumes. No peripheral cyanosis noted nor is any central cyanosis noted. This patient appears to be in COPD exacerbation, and we will start on long-acting bronchodilators. The last time I admitted this gentleman was in November of last year, and he had a pneumonia and was treated as such. In light of his high white count, it may be prudent to proceed to do a noncontrast CT if need be and to rule this out and treat accordingly. cc: Luz Golden MD
[2019-04-19] MEDS: SOLU-MEDROL IV ONE (23:22)
[2019-04-20] MEDS ORDERED: TYLENOL PO PRN (00:54)
[2019-04-20] MEDS ORDERED: ZOFRAN IV PRN (00:54)
[2019-04-20] MEDS: BROVANA NEB INH SCH ×3 (01:04→19:13)
[2019-04-20] MEDS: DUONEB (A & A) INH SCH ×6 (01:04→19:13)
[2019-04-20 03:38] LABS: BASO# 0.02 X1000 (0.0-0.2); BASO% 0.2 % (0.0-0.8); EOS# 0.38 X1000 (0.0-0.7); EOS% 3.4 % (0.0-10.0); HEMATOCRIT 39.1 % (42.0-52.0); HEMOGLOBIN 12.9 g/dL (14.0-18.0); IMM GRAN# 0.02 X1000 (0.0-0.04); IMM GRAN% 0.2 % (0.0-0.5); LYMPH# 1.08 X1000 (1.2-3.4); LYMPH% 9.8 % (20.5-51.1); MCV 90.9 FL (81-99); MONO% 0.9 % (1.7-9.3); MPV 9.5 FL (7.4-10.4); NEUT# 9.43 X1000 (1.4-6.5); NEUT% 85.5 % (42.2-75.2); PLT 243 X1000 (130-400); RDW 13.7 % (11.5-14.5); WBC 11.03 X1000 (4.8-10.8)
[2019-04-20 04:23] LABS: ALBUMIN 4.2 g/dL (3.5-5.0); CALCIUM 9.6 mg/dL (8.8-10.2); CREATININE 1.2 mg/dL (0.7-1.2); PHOSPHORUS 3.4 mg/dL (2.7-4.5)
--- NOTE | 2019-04-20 05:55 | Diag Imaging Result Doc PS360 ---
EXAM: CT THORAX W/O CONTRAST HISTORY: SOB,Leukocytosis,R/O PNA,Hx of COPD TECHNIQUE: CT chest without intravenous contrast COMPARISON: None. FINDINGS: No pleural effusions. No cardiomegaly. Prominent atherosclerosis. There are small mediastinal nodes. Severe emphysematous changes. Mild increased interstitial markings in the lower right lung. No consolidation. Limited images through the upper abdomen reveal thickening to the adrenal glands without distinct nodules. IMPRESSION: 1.Severe emphysema 2.Prominent atherosclerosis 3.Likely scarring or atelectasis in the right A preliminary report was given at 12:41 AM This exam was performed using automated exposure control, adjustment of mA or kV according to patient size, and/or use of iterative reconstruction technique.Cthswelves:) Electronically signed by Max Hernández 04/20/2019 5:52 AM
--- NOTE | 2019-04-20 08:17 | HISTORY AND PHYSICAL ---
PRIMARY CARE PROVIDER: Dr. Cordova. DATE AND TIME: 04/19/2019 at 2245. CHIEF COMPLAINT: Shortness of breath. HISTORY OF PRESENT ILLNESS: Mr. Ewing is an 83-year-old male, [facility]. The patient states that normally he does have some shortness of breath with exertion, though yesterday he began having more shortness of breath with exertion than his usual. He stated that today this did get progressively worse. He began experiencing shortness of breath at rest as well. He also began having a dry cough. Secondary to this, he did present to the ER for further evaluation. He has denied any headache, dizziness, chest pain, fever, body aches or chills. He denies any abdominal pain, nausea, vomiting, or diarrhea. He denies any hematochezia or melena. He denies any dysuria, urinary frequency or decreased urinary output. He also denies any pain, numbness, tingling or swelling in extremities. The patient denied any recent illnesses such as influenza, upper respiratory infection or pneumonia. He denied being around anyone with similar symptoms. He also denied any recent travel. He denied any recent antibiotic use. The patient denies any home oxygen use as well. Unfortunately, I do not have a room air oxygen saturation document at this time, though he is maintaining oxygen saturation at 96% on nasal cannula at 4 to 5 L. Upon evaluation in the ER, the patient upon my assessment was only noted to be very mildly dyspneic. He was not in any respiratory distress. He was able to speak in full sentences. He has stated that since receiving a breathing treatment that his breathing was better. He did have a mildly elevated white blood cell count at 12,540. He has been afebrile. He did have a prolonged expiratory phase and expiratory wheezing noted throughout all lung devine, though did have what appeared to be some slight coarse crackles and rhonchi noted in the right lower lung field upon auscultation. Given this, we did perform a CT thorax without contrast to rule out possible pneumonia. Fortunately, this was negative for any infectious process. Also of note, the patient's BUN and creatinine were elevated. His creatinine is 1.3 with a GFR 53. He does report a history of chronic kidney disease. It does appear that since 2015, his baseline creatinine is anywhere from 1.3 to 1.5. He does appear at baseline at this time, though his potassium is slightly elevated at 5.6. His proBNP was slightly elevated at 1438 as well, though he is not reporting any lower extremity edema or paroxysmal nocturnal dyspnea. He is going to receive a one- time dose of 20 mg of Lasix IV, as well as he is receiving albuterol nebulizer treatment. We suspect this will help his potassium. We will recheck a renal profile in the morning. The patient is not reporting any chest pain at this time. His troponin T high sensitivity was mildly elevated at 25. EKG showed a rate of 88 in normal sinus rhythm, nonspecific ST and T-wave abnormality with a QTc of 471. When compared to the EKG in November 2018, there did not appear to be any acute changes noted. He was placed on the medical floor telemetry for evaluation of COPD exacerbation. REVIEW OF SYSTEMS: A 14 point review of systems was conducted with the patient. All were negative, except for pertinent positives mentioned in HPI. PAST MEDICAL HISTORY: 1. COPD. 2. Hypertension. PAST SURGICAL HISTORY: Bilateral hydrocelectomy by Dr. Pelletier in 2011. SOCIAL HISTORY: The patient is . Reportedly, his secondary to COPD and lung cancer. The patient reports that he smoked for 50 years. Most recently, he did smoke 1 pack of cigarettes approximately every 3 days. He reports that he quit smoking 4 weeks ago. There is no known alcohol or illicit drug use. FAMILY HISTORY: Mother had a history of unknown type of cancer. He also has a history of his brother having heart disease and coronary artery bypass grafting. ALLERGIES: The patient has no known allergies. HOME MEDICATIONS: We are waiting for the patient's home medication list to be updated and verified. It does look as though the only medicine that he recently has gotten filled is amlodipine-benazepril 5-20 mg tablet. The patient cannot confirm this medicine. We will place order for the nurse to try to contact [facility] in the morning to verify his medication list. DIAGNOSTIC DATA: White blood cell count 12,540, hemoglobin 12.9, hematocrit 40 with platelet count 245. Sodium 146, potassium 5.6, chloride 107, serum bicarbonate is 24. BUN 25, creatinine 1.3 with a GFR 53, glucose 107, calcium 9.3. Liver function tests within normal limits. CK 152. Troponin T high sensitivity is 25. ProBNP is 1438. Blood gases were obtained on nasal cannula at 6 L at FiO2 of 44%. A pH 7.4, pCO2 39, PO2 88, HC03 24.5, oxyhemoglobin 94.8, O2 saturation 99 with a carboxyhemoglobin of 2.9. CT thorax without contrast showed no infiltrate, mass or edema. There was emphysema, atheromatous disease and bilateral adrenal hyperplasia. Please see full CT report for all detailed findings. EKG showed normal sinus rhythm with nonspecific ST and T-wave abnormality at a rate of 88, with a QTc of 471. PHYSICAL EXAMINATION: VITAL SIGNS: Temperature 97.6 degrees, heart rate 77, respirations 19, blood pressure 144/73, oxygen saturation is 96% per nasal cannula at 5 L. GENERAL: Mr. Ewing is a very pleasant, 83-year-old elderly male. He was resting in the ER stretcher. He was in no acute distress. He was awake, alert, and able to answer questions appropriately. HEENT: Head is atraumatic, normocephalic. Pupils were unequal. His right pupil was 4 mm; his left pupil was 2 mm. The patient could not tell me whether or not this had been previously present, though states he has had bilateral eye surgeries which included cataract surgery as well, though he denied any reports of headache, dizziness, lightheaded, or any visual changes. Oral mucosa is slightly dry. Oropharynx is clear. NECK: Supple. Trachea midline. CARDIOVASCULAR: Patient has S1, S2 present. No murmurs, gallops, rubs appreciated with a regular rate and rhythm. PULMONARY: Patient has symmetrical chest expansion bilaterally. He did have a prolonged expiratory phase and expiratory wheezing noted in bilateral full devine. Also did have some slight coarse crackles and rhonchi noted in right lower lung devine. ABDOMEN: Soft, nondistended, nontender. Bowel sounds are present in all 4 quadrants, were normoactive. EXTREMITIES: No cyanosis or edema noted. Pulse, motor, and sensory were intact in all extremities. Radial pulses are 2+ bilaterally. Pedal pulses were 1+ bilaterally. INTEGUMENTARY: The patient's skin is pink, warm and dry. NEUROLOGICAL: Patient is alert and oriented to person, place, time and situation. He is able to move all extremities. There were no focal neurological deficits noted. ASSESSMENT AND PLAN: 1. Chronic obstructive pulmonary disease exacerbation. For this, we will continue with supplemental oxygen. We have placed him with intravenous Solu-Medrol, 40 mg intravenous q. 12 hours. We will do short-acting and long-acting bronchodilators. We will continue with aggressive pulmonary toilet with nebulizer treatments as mentioned above, as well as incentive spirometry. We will also place him on Zithromax 5 mg intravenous q. 12 hours. As previously mentioned, we were concerned about possible pneumonia, though CT thorax did not show any infectious process. 2. History of hypertension. At this time, the patient's blood pressure is controlled. Last reading was 144/73. We are going to try to contact his pharmacy which is [facility] in the morning to obtain his home medication list, though his appropriate medications can be continued if needed. 3. Chronic kidney disease. It does appear that the patient's baseline creatinine is 1.3 to 1.5. He does appear to be at his baseline, though we are going to monitor this very closely. His potassium was slightly elevated at 5.6. He did receive a small dose of 20 mg intravenous Lasix in the emergency room, and is receiving albuterol nebulizer treatments. This will likely help lower his potassium some, though we are going to monitor his potassium closely and will repeat a renal profile in the morning. We will avoid nephrotoxic medications and renally-dose medicines as necessary. 4. Deep vein thrombosis prophylaxis provided with sequential compression devices. The patient has been placed on the medical floor telemetry. He will have vital signs q. 4 hours with strict intake and output. He will be on a heart healthy diet. We will repeat a CBC and a renal profile in the morning. We are going to do a series of cardiac enzymes. The patient's initial troponin T high sensitivity was slightly elevated. We will await those results and continue to follow. As previously mentioned, the patient is not reporting any chest pain at this present time. Further orders and recommendations pending hospital course, diagnostic studies, and physician evaluation. Dictated by VIRGIE Garcia for Luz Golden MD cc: Luz Golden [facility]
[2019-04-20] MEDS: SOLU-MEDROL IV SCH ×2 (11:56→23:18)
--- NOTE | 2019-04-20 14:38 | PROGRESS NOTE ---
DATE: 04/20/2019 INTERVAL HISTORY: The patient with significant improvement in dyspnea, but still wheezing a fair bit this morning. No new complaints. No acute events overnight. REVIEW OF SYSTEMS: Twelve-point review of systems negative except as per interval history. LABS: WBC 11.0, hemoglobin 12.9, hematocrit 39.1, platelets 243,000. Sodium 136, potassium 5, BUN 26, creatinine 1.2, glucose 138. High sensitivity troponin 28 which is essentially stable from previous. VITALS: T-max 97.9 degrees, pulse 83, respirations 20, blood pressure 140/59, O2 saturation 95% on 2 L by nasal cannula. PHYSICAL EXAMINATION: General: In no acute distress. Vitals: As above. HEENT/Head: Normocephalic, atraumatic. Moist mucous membranes. No cervical adenopathy. Cardiovascular: Regular rate and rhythm. No murmurs noted. Pulmonary: Mildly decreased breath sounds throughout, also with mild to moderate expiratory wheezing. Abdomen: Soft, nontender, nondistended. Bowel sounds positive. Extremities: Peripheral pulses intact. No clubbing, cyanosis, or edema. Neurologic: Cranial nerves grossly intact. No focal deficits identified. Psychiatric: Normal mood and affect. Awake, alert, oriented x3. ASSESSMENT AND PLAN: 1. Chronic obstructive pulmonary disease exacerbation, viral upper respiratory infection, improving with steroids and nebulizers. Continue those treatments and monitor. 2. Elevated creatinine, likely chronic kidney disease 3. Creatinine 1.3 on admission, essentially unchanged to 1.2 today. Has had 1 creatinine as low as 1.0 in the last few years, but other than that has been 1.2 to 1.4, so suspect this is just baseline chronic kidney disease 3. 3. Hypernatremia, resolved. 4. Hyperkalemia, resolved. 5. Elevated troponin, really only minimally elevated and flat. The patient without chest pain. EKG without any concerning changes. No need for further evaluation at this time. 6. Elevated brain natriuretic peptide. The patient's brain natriuretic peptide is elevated but actually significantly lower than his last one. Brain natriuretic peptide today 1438, previous brain natriuretic peptide 4608. May consider outpatient workup, but no need for further evaluation right now given lack of clinical signs or symptoms of heart failure.
--- NOTE | 2019-04-20 18:53 | ECHO REPORT ---
ORDER DATE: 04/20/2019 INDICATION: An 83-year-old male with dyspnea, elevated BNP, COPD, and hypertension. M-MODE MEASUREMENTS: Left ventricle end diastole: 4.9. Left ventricle end systole: 3.0. Posterior wall: 0.8. Interventricular septum: 0.8. Left atrium: 3.7. Aortic diameter: 3.1. SUMMARY OF 2-DIMENSIONAL IMAGIN. Left ventricular function appears to be at the lower limits of normal, estimated at 55%. There is a question of hypokinesis of the basal inferior wall and the basal inferior septum. That may raise concern for coronary heart disease. 2. The mitral annulus shows mild calcification. 3. The mitral valve opens normally. Color flow mapping unremarkable. 4. Pulse wave Doppler of mitral inflow shows reversal of the E/A ratio. The ratio is 0.5. 5. Tissue Doppler of septal and lateral mitral annulus averages 5 cm. There is impaired left ventricular relaxation. 6. The aortic valve shows some sclerosis of the cusps without stenosis. Maximum gradient is 18 mmHg, mean gradient 9 mmHg. 7. The pulmonic valve is normal. Color flow mapping unremarkable. 8. The tricuspid valve shows no significant regurgitation. Pulmonary pressure cannot be fully calculated. 9. The right-sided chambers are not dilated. 10.There is no pericardial effusion, no mass, and no thrombus. Consideration may be given to obtaining a myocardial perfusion stress test if there are clinical findings consistent with coronary heart disease. cc: Patel Singer MD
[2019-04-20] MEDS ORDERED: ZITHROMAX 500 MG/NS 500 MG/250 ML IVPB IV SCH (23:30)
[2019-04-21] MEDS: DUONEB (A & A) INH SCH ×3 (02:54→10:06)
[2019-04-21] MEDS: BROVANA NEB INH SCH (10:06)
[2019-04-21] MEDS: SOLU-MEDROL IV SCH (11:18)
[2019-04-21 11:52] VITALS: BP 129/58
[2019-04-21] MEDS ORDERED: TESSALON PO PRN (12:00)
--- NOTE | 2019-04-21 20:31 | DISCHARGE SUMMARY ---
ADMISSION DATE: 04/19/2019 DISCHARGE DATE: 04/21/2019 DISCHARGE DIAGNOSES: 1. Chronic obstructive pulmonary disease exacerbation. 2. Viral upper respiratory infection. 3. Chronic kidney disease, 3. 4. Hypernatremia. 5. Hyperkalemia. 6. Elevated BNP. HOSPITAL COURSE: The patient is an 83-year-old male with history of COPD. He presented with slowly progressive shortness of breath over a couple days. He was found to have decreased breath sounds and wheezing consistent with COPD exacerbation. No evidence of bacterial infection was found. It was thought that he likely had a viral URI precipitating a COPD exacerbation. He has been on steroids and DuoNebs and improved fairly rapidly. His creatinine was 1.3 on admission, 1.2 on discharge, which was fairly consistent with what he has had in the past. It was thought to be likely his baseline CKD 3. He had a very mildly elevated sodium and potassium at 146 and 5.6 respectively, which resolved with a little bit of hydration overnight. High sensitivity troponin was the mid 20s and stable over 3 checks. BNP was minimally elevated at 1438, which was actually down from his only other one in our system which was in November 2018, which was 4608. The patient had no lower extremity edema, no pulmonary edema on chest CT. No other sign of CHF, so further workup was not pursued. Aside from echocardiogram which showed normal EF, no significant valvular pathology. Over the course of a couple days, patient's wheezing and dyspnea almost entirely resolved with steroids and nebulizer treatments, so he was discharged home with oral steroid and Symbicort inhaler to follow up with his PCP. DISCHARGE MEDICATIONS: 1. Albuterol nebs as previously prescribed. 2. Medrol Dosepak 4 mg as directed. 3. Symbicort inhaler 1 puff inhaled b.i.d. 4. Tessalon Perles 100 mg p.o. t.i.d. as needed for cough. DISCHARGE VITAL SIGNS: Temperature 97.8 degrees, pulse 93, respirations 16, blood pressure 129/58, O2 saturation 94% on room air. DISCHARGE DIET: Regular. FOLLOWUP PLAN: The patient discharging home with inhalers and home oral steroids to finish treatment of COPD exacerbation. Patient to follow up with PCP. TIME SPENT: Greater than 30 minutes spent arranging discharge and counseling patient.
== END 2019-04-21 15:07 | disposition home or self-care (01) | DRG 191 ==
LOC: ED 20:09 → SUATTDRO 23:13 → 1N 23:13
PROVIDERS: ATTEND Internal Medicine